=== PATIENT | male | born 2000 | race Caucasian/White ===

== ENCOUNTER 2023-02-21 11:23 | Emergency (ER) | payer OTHER ==
[~2023-02-21] VITALS: Ht 182.9 cm; Wt 76.8 kg
[2023-02-21] MEDS ORDERED: CEPHALEXIN500 M1 PO (12:11)
[2023-02-21 12:22] VITALS: BP 123/79
== END 2023-02-21 12:27 | disposition home or self-care (01) ==
LOC: ED 11:23 → EDSEX 11:24 → ED 11:24
DX: S00.512A Abrasion of oral cavity, initial encounter (principal); F17.220 Nicotine dependence, chewing tobacco, uncomplicated; X58.XXXA Exposure to other specified factors, initial encounter
CPT/HCPCS: 99282